=== PATIENT | male | born 1965 | race Caucasian/White ===

== ENCOUNTER 2023-01-05 14:30 | Outpatient (RCR) | payer OTHER, SELFPAY ==
--- NOTE | 2022-11-02 15:45 | OTOPEVAL1 ---
Assessment and note entered by Herson Maradiaga, AMBAR/Von, CHT Evaluation Information Assessment Status Evaluation Diagnosis Pain in right finger Subjective Information Patient reporting pain in his right hand/thumb that started back in July 2022. Reporting pain and slight numbness on the dorsum of the thumb. Reporting intermittent pain - pain with rotating the arm and turning knobs, turning a knight, etc. Reported Pain Level Pain Score 0: Self Report Additional Pain Score Comments No pain at rest. The pain can get up to 8/10, reports its sudden onset and goes away quickly. Assessment OT Clinical Summary Patient referred to outpatient OT with dx of pain in his right, dominant hand. Upper limb tension test today is positive for radial nerve irritation . He has no sensory or strength deficit in the radial nerve distribution. 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 It appears he overuses the wrist/finger extensors during functional tasks/work tasks and this could be causing nerve impingement/irritation at the radial tunnel. Skilled OT indicated for HEP instruction/ progression, proximal shoulder/scapular strengthening for stability, nerve glides, body mechanics education, use of modalities, and manual therapy to facilitate reduced pain. Plan of Care Interventions Therapeutic Exercise,Manual Therapy,Neuro Re- education,Therapeutic Activities,Hot Pack/Cold Pack,Paraffin OT Services Indicated Yes Treatment Frequency and 0-1x/week for 4 weeks Duration These treatments will address the objective and functional deficits as defined above. The patient will be advanced safely and appropriately in order for the patient to progress towards his/her prior level of function. Additional exercises will be introduced and as well as a comprehensive home exercise program upon discharge, if needed, ?to ensure carryover of functional gains achieved in the clinic. This treatment plan has been reviewed and agreement upon by the patient.
--- NOTE | 2022-11-02 15:45 | OPREHPOC ---
Outpatient Therapy Plan of Care This is a Multidisciplinary Plan of Care that may contain components documented by all disciplines (PT, OT, and ST.) OT Problem 1 OT Problem #1 Knowledge Deficit OT Goal 1 Goal 1. Patient to be independent with instructed materials. Target Visit 3 OT Problem 2 OT Problem #2 Pain OT Goal 1 Goal 1. Patient to report reduced pain with right UE use, reporting pain at 4/10 or less with particular motions during ADLs (arm internal rotation with wrist flexion). Target Visit 3 OT Problem 3 OT Problem #3 Impaired Strength OT Goal 1 Goal 1. 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 Target Visit 3
--- NOTE | 2022-12-10 08:47 | BUOTOPEVAL ---
Assessment and note entered by AMBAR Argueta/Von, T Progress Update 12/09/22 Assessment Status Progress Diagnosis Pain in right finger Subjective Information Patient reporting pain in his right hand/thumb that started back in July 2022. He states that since starting therapy his pain has reduced and the frequency of pain has reduced. Pain continues to occur with rotating the arm/forearm with turning knobs, turning a knight, etc. He states he no longer has paresthesias in the thumb. Therapy has been treating him for signs/symptoms of radial tunnel syndrome - nerve glides, extrinsic wrist extensor stretching and mobilizations, and immobilizing the wrist via splinting. Reported Pain Level Pain Score 0/10 at rest Additional Pain Score Comments Patient reports no pain at rest. Intermittent zingers in the dorsum of the thumb. These get up to 6-7/10. He states that these are occurring less often, but they still do occur with particular UE movements. Assessment OT Clinical Summary Patient referred to outpatient OT with dx of pain in his right, dominant hand. He is showing signs of reduced radial nerve irritation. He has no sensory or strength deficit in the radial nerve distribution. It appears he overuses the wrist/ finger extensors during functional tasks/work tasks and this could be causing nerve impingement/ irritation at the radial tunnel. A wrist cock up brace was fabricated and issued today. Continued killed OT indicated for HEP instruction/ progression, proximal shoulder/scapular strengthening for stability, nerve glides, body mechanics education, use of modalities, and manual therapy to facilitate reduced pain. Plan of Care Interventions Therapeutic Exercise,Manual Therapy,Neuro Re- education,Therapeutic Activities,Hot Pack/Cold Pack,Paraffin OT Services Indicated Yes Treatment Frequency and 0-1x/week for 4 weeks Duration These treatments will address the objective and functional deficits as defined above. The patient will be advanced safely and appropriately in order for the patient to progress towards his/her prior level of function. Additional exercises will be introduced and as well as a comprehensive home exercise program upon discharge, if needed, ?to ensure carryover of functional gains achieved in the clinic. This treatment plan has been reviewed and agreement upon by the patient.
--- NOTE | 2022-12-10 08:49 | OPREHPOC ---
Outpatient Therapy Plan of Care This is a Multidisciplinary Plan of Care that may contain components documented by all disciplines (PT, OT, and ST.) OT Problem 1 OT Problem #1 Knowledge Deficit OT Goal 1 Goal 1. Patient to be independent with instructed materials. ---OT POC UPDATE 12/09/22--- 1. Met. Continue Target Visit 7 OT Problem 2 OT Problem #2 Pain OT Goal 1 Goal 1. Patient to report reduced pain with right UE use, reporting pain at 4/10 or less with particular motions during ADLs (arm internal rotation with wrist flexion). ---OT POC UPDATE 12/09/22--- 1. Progressing, continue Target Visit 7 OT Problem 3 OT Problem #3 Impaired Strength OT Goal 1 Goal 1. 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 ---OT POC UPDATE 12/09/22--- 1. Progressing, continue Target Visit 7
--- NOTE | 2022-12-28 15:30 | PCOTNOTE ---
Patient called & cancelled scheduled appointment this date due to having to work.
--- NOTE | 2023-01-05 15:27 | OTOPPROG ---
Assessment and note entered by Herson Maradiaga, AMBAR/Von, T Progress Update 01/05/23 Assessment Status Progress Diagnosis Pain in right finger Subjective Information Patient reporting pain in his right hand/thumb that started back in July 2022. He states his pain continues to reduce, having less sudden onset of painful zingers in the dorsum of the thumb. He is able to put the radial nerve at tension now without onset of pain or paresthesias. He no longer reports pain with rotating the arm /forearm with turning knobs, turning a knight, just reports tightness and pulling with rotating the arm. Therapy has been treating him for signs/symptoms of radial tunnel syndrome - nerve glides, extrinsic wrist extensor stretching and mobilizations, and immobilizing the wrist via splinting. 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 Assessment OT Clinical Summary Patient referred to outpatient OT with dx of pain in his right, dominant hand. He continues to show signs of reduced radial nerve irritation. He has no sensory or strength deficit in the radial nerve distribution. It appears he overuses the wrist/ finger extensors during functional tasks/work tasks and this could be causing nerve impingement/ irritation at the radial tunnel. He has been using compensatory strategies, wrist immobilization, nerve glides, and stretching with good results. Plan to have him continue this treatment plan and follow up in a month to progress his HEP and discuss weaning out of the wrist brace. Plan of Care Interventions Therapeutic Exercise,Manual Therapy,Neuro Re- education,Therapeutic Activities,Hot Pack/Cold Pack,Paraffin OT Services Indicated Yes Treatment Frequency and Follow up in a month Duration These treatments will address the objective and functional deficits as defined above. The patient will be advanced safely and appropriately in order for the patient to progress towards his/her prior level of function. Additional exercises will be introduced and as well as a comprehensive home exercise program upon discharge, if needed, ?to ensure carryover of functional gains achieved in the clinic. This treatment plan has been reviewed and agreement upon by the patient.
== END 2023-01-31 23:59 | disposition home or self-care (01) ==
LOC: ANHOT 14:30
PROVIDERS: PCP Family Medicine; Visit Provider Family Medicine
DX: M79.644 Pain in right finger(s) (principal); G89.29 Other chronic pain
CPT/HCPCS: 97018; 97035; 97110; 97140; 97166; L3906

== ENCOUNTER 2023-02-12 13:58 | Outpatient (RCR) | payer OTHER, SELFPAY ==
--- NOTE | 2023-02-12 13:07 | OTOPDC ---
Assessment and note entered by Herson Maradiaga, OTR/L, CHT OT Discharge Notification 02/12/23 OT Clinical Summary Patient initially evaluated by OT on 11/02/22 for right hand pain consistent with radial neuritis. He unfortunately did not show to the most recent re-evaluation and we are unable to get a hold of him. Please refer to last note, dated 01/05/23, for most recent progress update. D/C OT.
== END 2023-02-12 14:00 | disposition home or self-care (01) ==
LOC: ANHGOSHOT 13:58
PROVIDERS: PCP Family Medicine; Visit Provider Family Medicine
DX: M79.644 Pain in right finger(s) (principal); G89.29 Other chronic pain
CPT/HCPCS: 99199

== ENCOUNTER 2023-07-06 01:30 | Day surgery (SDC) | payer OTHER, SELFPAY ==
[2023-06-29 15:11] VITALS: BMI 29.9
[2023-07-06 12:36] VITALS: BP 131/81; PULSE 55; RESP 18; TEMP 36.1; O2SAT 99
[2023-07-06] MEDS: LACTATED RINGERS 1,000 ML 150 ML IV CONT ×2 (12:54→13:58)
--- NOTE | 2023-07-06 13:44 | WPDANESEPPF ---
Anes - Initial Pre Proc Eval Procedure: Operation Date: 07/06/23 13:30 Proposed Procedures p Screening Colonoscopy - Patrick Damon MD Date/Time: 07/06/23 13:44 Surgeon: Patrick Damon MD Pre Op Diagnosis: neoplasm screening Patient Data Age: 58 Gender: M Height: 1.83 m Weight: 101.4 kg Last Vital Signs Temp 96.9 F L 07/06/23 12:36 Pulse 55 L 07/06/23 12:36 Resp 18 07/06/23 12:36 BP 131/81 07/06/23 12:36 Pulse Ox 99 07/06/23 12:36 O2 Del Method Room Air 07/06/23 12:36 Allergies Allergy/AdvReac Type Severity Reaction Status Date / Time Penicillins Allergy Severe rash Verified 07/06/23 12:35 Home Medications Medication Instructions Recorded Confirmed Type cetirizine 10 mg tablet 10 mg PO DAILY #90 tabs 03/01/23 06/29/23 Rx famotidine 20 mg tablet 20 mg PO Q12H acid reflux #180 tabs 03/01/23 06/29/23 Rx lisinopril 10 mg tablet 10 mg PO DAILY #90 tabs 05/21/23 06/29/23 Rx fluticasone propionate 50 See Rx Instructions .Route 05/24/23 06/29/23 Rx mcg/actuation nasal .COMPLEX #16 mL spray,suspension blood pressure monitor #1 ea 06/03/23 Rx Fiber (psyllium husk) 2 cap PO DAILY 06/29/23 06/29/23 History desvenlafaxine succinate 50 mg 50 mg PO DAILY 06/29/23 06/29/23 History tablet,extended release 24 hr Patient hx anesthesia problems: none Family hx anesthesia problems: none Results Review: All pre-operative results and documents have been reviewed as part of the pre-operative evaluation. [facility] Past Medical History Medical History (Updated 06/03/23 @ 09:45 by Antwan Cespedes MD) Anxiety Asperger syndrome COVID-19 (~03/12/20) Depression Dyslipidemia Essential (primary) hypertension Gastro-esophageal reflux disease without esophagitis Rosacea Family History Family History Mother Diabetes mellitus Family history of anemia, Onset Age: 91 Family history of liver disease, Onset Age: 91 Patient's mother is in good health Grandparent Family history of arthritis, Onset Age: 71 Family history of kidney disease, Onset Age: 71 Family history of lung cancer, Onset Age: 71 Family history of primary malignant neoplasm of liver, Onset Age: 89 Father Family history of Parkinson's disease, Onset Age: 75 Malignant neoplasm of prostate Family history of pancreatic cancer Patient's father is Sibling Acute myocardial infarction Social History Social History Social History: Patient is single, he lives with his girlfriend in [place]. His job involves counting inventory at area pharmacies. Caffeine- daily Smoking status: Never smoker Second hand tobacco smoke exposure: No Alcohol intake: never Substance use: never Substance use type: does not use Lack of Transportation: No Lack of Food: Never True Current Housing: I Have Housing Concerned About Future Housing: No Difficulty Paying Gas/Electric Bills: No Difficulty Paying for Meds: No Currently Unemployed: No Education: Bachelor's Degree Difficulty w/ Childcare or Family Care: No Living arrangements: with family Spiritual care concerns: No Anes - Eval Final PreProcedure Day of Procedure 07/06/23 13:44 Patient weight: normal Heart: regular rate and rhythm Lungs: clear to auscultation Airway: Mallampati scale class II Neurological: alert and oriented Last oral intake: >/= 8 hours ASA classification: II Emergent: no Anesthetic plan: proceed Anesthesia type and monitoring: general GIVS and standard monitoring Results Review: All pre-operative results and documents have been reviewed as part of the pre-operative evaluation. Informed Consent: The patient's anesthetic plan and its attendant risks and benefits were discussed with the patient/family/POA. Questions were solicited and answers prov
--- NOTE | 2023-07-06 13:48 | PM.HPGS ---
History of Present Illness History of Present Illness Consent: Risks, benefits, and alternatives have been discussed and questions answered. Patient agrees to proceed with procedure. Chief complaint: neoplasm screening Narrative: Patrice Melvin is a 58 year old male here for first screening colonoscopy Review of Systems Review of Systems: All systems reviewed & are unremarkable except as noted in HPI and below PMFSH Past Medical History Medical History (Updated 07/06/23 @ 13:49 by Patrick Damon MD) Anxiety Asperger syndrome Colon cancer screening COVID-19 (~03/12/20) Depression Dyslipidemia Essential (primary) hypertension Gastro-esophageal reflux disease without esophagitis Rosacea Family History Family History Mother Diabetes mellitus Family history of anemia, Onset Age: 91 Family history of liver disease, Onset Age: 91 Patient's mother is in good health Grandparent Family history of arthritis, Onset Age: 71 Family history of kidney disease, Onset Age: 71 Family history of lung cancer, Onset Age: 71 Family history of primary malignant neoplasm of liver, Onset Age: 89 Father Family history of Parkinson's disease, Onset Age: 75 Malignant neoplasm of prostate Family history of pancreatic cancer Patient's father is Sibling Acute myocardial infarction Social History Social History Social History: Patient is single, he lives with his girlfriend in [place]. His job involves counting inventory at area pharmacies. Caffeine- daily Smoking status: Never smoker Second hand tobacco smoke exposure: No Alcohol intake: never Substance use: never Substance use type: does not use Lack of Transportation: No Lack of Food: Never True Current Housing: I Have Housing Concerned About Future Housing: No Difficulty Paying Gas/Electric Bills: No Difficulty Paying for Meds: No Currently Unemployed: No Education: Bachelor's Degree Difficulty w/ Childcare or Family Care: No Living arrangements: with family Spiritual care concerns: No Meds Home Medications and Allergies Home Medications Medication Instructions Recorded Confirmed Type cetirizine 10 mg tablet 10 mg PO DAILY #90 tabs 03/01/23 06/29/23 Rx famotidine 20 mg tablet 20 mg PO Q12H acid reflux #180 tabs 03/01/23 06/29/23 Rx lisinopril 10 mg tablet 10 mg PO DAILY #90 tabs 02/02/24 03/12/24 Rx fluticasone propionate 50 See Rx Instructions .Route 05/24/23 06/29/23 Rx mcg/actuation nasal .COMPLEX #16 mL spray,suspension blood pressure monitor #1 ea 06/03/23 Rx Fiber (psyllium husk) 2 cap PO DAILY 06/29/23 06/29/23 History desvenlafaxine succinate 50 mg 50 mg PO DAILY 06/29/23 06/29/23 History tablet,extended release 24 hr Allergies Allergy/AdvReac Type Severity Reaction Status Date / Time Penicillins Allergy Severe rash Verified 07/06/23 12:35 Vital Signs Vital Signs - 24 hr 07/06/23 12:36 Temperature 96.9 F L Pulse Rate 55 L Respiratory Rate 18 Blood Pressure 131/81 Pulse Oximetry 99 Oxygen Delivery Room Air Exam Const: General: comfortable and no acute distress HENMT: Face/Nose/Sinus: Normal nares present Eyes: General: appearance normal, both eyes and all related structures Neck: Neck: no JVD Resp: Auscultation: clear to auscultation bilaterally Cardio: Rate: regular rate Rhythm: regular rhythm GI: Inspection: non-distended GI Palp: Yes Soft to palpation Skin: General skin exam: normal color Neuro: General: gait normal Speech: normal speech Extrem: General: normal to inspection Psych: Mental Status: mental status grossly normal Assessment and Plan Assessment and plan (1) Colon cancer screening: Code(s): Z12.11 - Encounter for screening for malignant neoplasm of colon Status: Acute
[2023-07-06 14:06] VITALS: BP 111/68; PULSE 60; RESP 25; O2SAT 100
[2023-07-06 14:16] VITALS: BP 114/76; PULSE 54; RESP 15; O2SAT 100
[2023-07-06 14:26] VITALS: BP 113/78; PULSE 63; RESP 17; O2SAT 100
== END 2023-07-06 14:35 | disposition home or self-care (01) ==
PROVIDERS: PCP Family Medicine; Visit Provider Internal Medicine Gastroenterology
PROC: 0DJD8ZZ Inspection of Lower Intestinal Tract, Via Natural or Artificial Opening Endoscopic (ICD-10-PCS; CPT 45378; principal; 2023-07-06 13:30)
DX: Z12.11 Encounter for screening for malignant neoplasm of colon (principal); K64.8 Other hemorrhoids; K57.30 Diverticulosis of large intestine without perforation or abscess without bleeding; I10 Essential (primary) hypertension; E78.5 Hyperlipidemia, unspecified; K21.9 Gastro-esophageal reflux disease without esophagitis; F41.9 Anxiety disorder, unspecified; F84.5 Asperger's syndrome; F32.A Depression, unspecified; Z80.1 Family history of malignant neoplasm of trachea, bronchus and lung; Z80.0 Family history of malignant neoplasm of digestive organs; Z80.42 Family history of malignant neoplasm of prostate; Z82.49 Family history of ischemic heart disease and other diseases of the circulatory system
CPT/HCPCS: 45378; J2704; J7120